=== PATIENT | male | born 1945 | race African-American/Black ===

== ENCOUNTER 2017-05-02 09:54 | Emergency (ER) | payer MEDICARE, MEDICAID ==
[2017-05-02] MEDS ORDERED: Acetaminophen 500 MG TAB ONE (10:40)
[2017-05-02 10:43] LABS: Bilirubin Negative (Negative); Blood, Urine Trace (Negative); Clarity Clear (Clear); Glucose, Urine (Dipstick) Negative (Negative); Leukocyte Trace (Negative); Nitrite Negative (Negative); Protein, Urine (Dipstick) Negative (Neg-Trace); Urobilinogen 0.2 mg/dL (0.2-1.0)
[2017-05-02 10:54] LABS: #Basophils 0.2 thou/uL (0.0-0.2); #Eosinphils 0.2 thou/uL (0.0-0.7); #Lymphocytes 1.2 thou/uL (1.20-3.40); #Neutrophils 7.8 thou/uL (1.40-6.50); %Basophils 1.7 % (0.0-1.0); %Lymphocytes 11.7 % (21.0-51.0); %Monocytes 9.4 % (0.0-10.0); %Neutrophils 75.1 % (42.0-75.0); Hemoglobin 14.2 g/dL (14.0-18.0); Mean Corpuscular HGB CONC 31.3 g/dL (32.0-36.0); Mean Corpuscular Hemoglobin 29.8 pg (27.0-31.0); Mean Corpuscular Volume 95.3 fl (80.0-94.0); Mean Platelet Volume 7.6 fL (7.4-10.4); Platelet Count 176 thou/uL (130-400); RBC Distribution Width 12.9 % (11.5-14.5); Red Blood Cell (RBC) Count 4.75 mill/uL (4.70-6.10); White Blood Cell (WBC) Count 10.4 thou/uL (4.8-10.8)
[2017-05-02 10:55] LABS: RBC/HPF 0-3 HPF (0-3); Squamous Epithelial 0-3 HPF (0-3)
[2017-05-02 10:56] LABS: Bacteria/HPF 1+ HPF (None Seen); Yeast-All Forms Rare HPF (None Seen)
[2017-05-02 11:05] LABS: ALT (SGPT) 9 U/L (8-55); AST (SGOT) 11 U/L (5-34); Albumin 3.7 g/dL (3.4-4.8); Alkaline Phosphatase 103 U/L (40-150); Anion Gap 11 mmol/L (10-20); BUN (Urea Nitrogen) 10 mg/dL (8.4-25.7); Bilirubin, Total 0.6 mg/dL (0.2-1.2); Calc. Creatinine Clearance 0 mL/min (70-130); Carbon Dioxide 30 mmol/L (23-31); Chloride 105 mmol/L (98-107); Estimated GFR-MDRD 83; Globulin 3.8 g/dL (2.4-3.5); Glucose 98 mg/dL (80-115); Potassium 4.3 mmol/L (3.5-5.1); Protein, Total 7.5 g/dL (5.8-8.1); Sodium 142 mmol/L (136-145)
[2017-05-02] MEDS ORDERED: cefTRIAXone\\ROCEPHIN 2 GM VIAL ONE (11:31)
[2017-05-02] MEDS ORDERED: Sodium Chloride 0.9% 100 ML ONE (11:31)
[2017-05-02] MEDS ORDERED: Ibuprofen 800 MG TAB ONE (11:49)
--- NOTE | 2017-05-02 16:30 | RAD ---
PORTABLE CHEST 05/02/17 An AP portable film at 1027 is compared with a 02/05/14 study. Cardiomegaly is about the same as befo re. The interstitial markings seem mildly increased today compared to before. I cannot exclude some very minor congestion but the finding is equivocal. There is certainly no lobar infiltrate or signi ficant effusion. IMPRESSION: Mild cardiomegaly, unchanged. Slight interstitial prominence. POS: [facility]
== END 2017-05-02 11:54 | disposition home or self-care (01) ==
LOC: BURERS 09:54
DX: N39.0 Urinary tract infection, site not specified (principal); J06.9 Acute upper respiratory infection, unspecified; I10 Essential (primary) hypertension; Z72.0 Tobacco use; Z71.6 Tobacco abuse counseling
CPT/HCPCS: 36415; 71010; 80053; 81003; 81015; 83605; 85025; 87040; 87077; 87086; 87186; 96365; J0696; J7050

== ENCOUNTER 2018-04-04 22:00 | Emergency (ER) | payer MEDICARE, MEDICAID ==
[2018-04-04 22:19] LABS: #Basophils 0.1 thou/uL (0.0-0.2); #Eosinphils 0.3 thou/uL (0.0-0.7); #Lymphocytes 1.2 thou/uL (1.20-3.40); #Monocytes 0.8 thou/uL (0.11-0.59); #Neutrophils 6.2 thou/uL (1.40-6.50); %Basophils 1.4 % (0.0-1.0); %Eosinophils 3.2 % (0.0-10.0); %Lymphocytes 14.1 % (21.0-51.0); %Monocytes 9.3 % (0.0-10.0); %Neutrophils 71.9 % (42.0-75.0); Hemoglobin 13.5 g/dL (14.0-18.0); Mean Corpuscular Hemoglobin 29.1 pg (27.0-31.0); Mean Platelet Volume 8.9 fL (7.4-10.4); Platelet Count 154 thou/uL (130-400); RBC Distribution Width 13.5 % (11.5-14.5); Red Blood Cell (RBC) Count 4.62 mill/uL (4.70-6.10); White Blood Cell (WBC) Count 8.6 thou/uL (4.8-10.8)
[2018-04-04] MEDS ORDERED: Nitroglycerin 0.4 MG TAB (25 Tab Bottle) ONE (22:21)
[2018-04-04] MEDS ORDERED: Furosemide 100 MG/10 ML VIAL ONE (22:27)
[2018-04-04 22:33] LABS: CKMB 2.2 ng/mL (0-6.6); Troponin I 0.014 ng/mL (< 0.028)
[2018-04-04 22:39] LABS: ALT (SGPT) 12 U/L (8-55); AST (SGOT) 16 U/L (5-34); Albumin 3.7 g/dL (3.4-4.8); Alkaline Phosphatase 97 U/L (40-150); Anion Gap 14 mmol/L (10-20); BUN (Urea Nitrogen) 13 mg/dL (8.4-25.7); Bilirubin, Total 0.7 mg/dL (0.2-1.2); Calc. Creatinine Clearance 0 mL/min (70-130); Carbon Dioxide 33 mmol/L (23-31); Chloride 99 mmol/L (98-107); Estimated GFR-MDRD Greater than 90; Globulin 3.3 g/dL (2.4-3.5); Glucose 135 mg/dL (83-110); Lipase 10 U/L (8-78); Sodium 143 mmol/L (136-145)
[2018-04-04 22:40] LABS: Base Excess-Venous 8.4 mmol/L (0 (+/- 2.5)); Bicarbonate (HCO3v) 36.6 mmol/L (1.0-85.0); CO2 Tension (PvCO2) 64.2 mmHg (41.0-51.0); Hemoglobin - Calc 15.7 g/dL (12.0-18.0); O2 Tension (PvO2) 67.3 mmHg (35.0-45.0); pH (Venous) 7.364 (7.35-7.45); vO2 Saturation-calc 91.5 % (94-98)
[2018-04-04 22:41] LABS: Calcium, Ionized 1.02 mmol/L (1.12-1.32); T. Carbon Dioxide 38.6 mmol/L (1.0-85.0)
[2018-04-04] MEDS ORDERED: Potassium Chloride 20 MEQ TAB ONE (22:42)
[2018-04-04 22:43] LABS: Potassium 2.9 mmol/L (3.4-4.7)
--- NOTE | 2018-04-04 22:45 | RAD ---
AP VIEW CHEST: 04/04/18 HISTORY: Chest pain. Shortness of breath. AP view chest is obtained on 04/04/18. Comparison made to previous exam from 05/02/17. AP view chest demonstrates some pulmonary vascular congestion. No evidence of effusions, pneumonia, o r pneumothorax seen. IMPRESSION: Pulmonary vascular congestion, otherwise unremarkable AP view chest. POS: [facility]
[2018-04-04] MEDS ORDERED: Labetalol HCl 100 MG/20 ML VIAL ONE (23:07)
[2018-04-04] MEDS ORDERED: Diltiazem 125 MG/25 ML ONE ×2 (23:07→23:13)
--- NOTE | 2018-04-04 23:25 | CT ---
CTA ABDOMEN AND PELVIS AND CHEST 04/04/18 HISTORY: Patient with abdominal and chest pain. Contrast enhanced CTA of the chest, abdomen and pelvis obtained. 2D and 3D reconstructed images perfo rmed on an independent 3D workstation. The lung parenchyma demonstrates no definite evidence of masses. No evidence of hemo or pneumothorax seen. No evidence of free intraperitoneal air seen. There is a descending thoracic aortic dissection extending in the upper most margin of the descending thoracic aorta involving the entire descending thoracic aorta. The dissection extends into the abdom inal aorta. There is flow seen in the true and false lumens. There is flow seen in the SMA, celiac an d both renal arteries as well as the FATOUMATA. The aortic dissection extends into the left common iliac ar irwin appearing to extend into the origins of the left external and internal iliac arteries. The right common iliac artery does not contain any evidence of dissection. The liver and spleen are unremarkable. The pancreas is unremarkable. The gallbladder has been surgically removed. Right adrenal adenoma is seen. The left adrenal gland is unremarkable. Upper pole right renal calculus seen. The urinary bladder and prostate gland are unremarkable. IMPRESSION: Extensive thoracic aortic dissection involving the entire descending and abdominal aorta extending to the left iliac artery. POS: [facility]
== END 2018-04-05 00:36 | disposition short-term general hospital (02) ==
LOC: BURERS 22:00
DX: I71.01 Dissection of thoracic aorta (principal); I71.02 Dissection of abdominal aorta; I77.72 Dissection of iliac artery; I10 Essential (primary) hypertension; Z87.891 Personal history of nicotine dependence; Z79.899 Other long term (current) drug therapy; Z79.82 Long term (current) use of aspirin
CPT/HCPCS: 71045; 71275; 80053; 82330; 82553; 82803; 83690; 83880; 84484; 85025; 85379; 93005; 96365; 96375; J1940